=== PATIENT | male | born 1995 | race Caucasian/White ===

== ENCOUNTER 2023-04-04 09:57 | Day surgery (SDC) | payer SELFPAY, OTHER ==
[2023-04-04] VITALS (7 sets, daily range): BP systolic 92–126; BP diastolic 52–74; PULSE 46–65; RESP 14–16; TEMP 36.5–37.1; O2SAT 97–100; BMI 25.9
[2023-04-04] MEDS: Cefazolin 2 GM in 0.9% Normal Saline 100 ML IV (14:28)
--- NOTE | 2023-04-04 14:28 | PCM.HP.BLA ---
History and Physical Date of Admission: 04/04/23 Date of Service: 03/01/23 MR#: [id number] Acct: [id number] Name: LUTHER PANTOJA Rep #: [id number] : 1995 Provider: Dr. Nathan Mcfadden MD Age/Sex: 27/M Location: [facility] Status: Signed Intake Vital Signs 03/01/2313:02 Height 5 ft 8 in Weight: 170 lb 4 oz BMI 25.9 BP 127/71 H Blood Pressure Location Rt brachial Position Sitting Respiration 18 Pulse 74 Pulse Source Monitor Temp 97.4 F L Temp Source Temporal Pulse Oximetry (%) 99 Oxygen Delivery Method room air Intake Visit Reasons: R INGUINAL HERNIA Chief Complaint: hernia consult [facility] Family History (Updated 03/01/23 @ 13:02 by Sofiya Nix) Mother Breast cancer HPI HPI HPI: Patient is a 27-year-old male who presents for concern for right inguinal hernia. This finding was first noticed by patient approximately 3-1/2 weeks ago. Patient is not able to recall how this occurred and states he was simply sitting at home after work when he noticed a bulge. Other symptoms include: Mild discomfort after the end of a long day of work. He denies any affect to his bowels. Patient has a personal history of smoking (just a couple cigarettes daily). Patient has no personal history of recurrent cutaneous infections including staph. Pertinent surgical history includes: No prior surgical history ROS General General: No weight change, appetite, fatigue, colon cancer, breast cancer or weakness HEENT HEENT: No difficulty swallowing, eye injury, eye surgery, swollen glands or hoarseness Endo Endocrine: No thyroid disease, diabetes mellitus, thyroid cancer, Hair loss, heat intolerance or cold intolerance Skin Skin: No rash or changing moles Breast Breast: No left breast lump, right breast lump, nipple discharge, breast pain, abnormal mammogram, abnormal US or breast enlargement Musc Musculoskeletal: No back problems, arthritis, rheumatoid arthritis, gout or joint pain Cardio Cardiovascular: No murmur, pacemaker, heart disease, atrial fibrillation, high blood pressure, heart attack, heart stent, palpitations, shortness of breat with exertion or chest pain Psych Psychiatric: No depression, anxiety or hearing voices Resp Respiratory: No shortness of breath, No sleep apnea, No cough, No COPD, No asthma, No emphysema and No wheezing Gastro Gastrointestinal: No abdominal pain, No nausea or vomiting, No diarrhea, No constipation, No blood in stool, No acid reflux, No hemorrhoids, No ulcers, No gallbladder problem and No black,tarry stools Ney Hematologic: No blood thinners, No blood disorders, No bleeding, No anemia and No blood clots Neuro Neurologic: No system reviewed and no additional complaints, except as documented, No as per HPI, No abnormal gait, No abnormal hearing, No abnormal movements, No abnormal speech, No behavioral changes, No burning sensations, No confusion, No convulsions, No disequilibrium, No dizziness, No localized weakness, No frequent falls, No headache(s), No lack of coordination, No loss of vision, No memory loss, No numbness, No other visual disturbances, No radicular pain, No restless legs, No sensory deficit, No syncope, No tingling, No tremor(s), No weakness and No other Exam Const General: cooperative and healthy appearing Orientation: alert, awake and oriented x3 Resp Effort & Inspection: normal respiratory effort Cardio Rate: regular rate Rhythm: regular rhythm GI Other: Hirsute, nondistended, slender, soft, and nontender to palpation x4 quadrants Other: Bilateral testes are descended in the scrotum. There is no appreciable hernia defect on the left. Patient has a palpable bulge with a palpable indirect defect on the right. Assessment and Plan Assessment and Plan (1) Inguinal hernia of right side without obstruction or gangrene: Status: Acute Comment: This is a 27-year-old, otherwise healthy, male who presents with signs and symptoms of a new right inguinal hernia. By exam this represents a indirect defect. The relevant pathophysiology was reviewed with patient and I have recommended a hernia repair with mesh. I have stressed to him that he will require 5 weeks of activity restrictions to allow this to heal necessarily and have also requested that he undergo smoking cessation prior to our repair as this will only serve to complicate wound healing. Mr. Pantoja expresses understanding of these requests and accepts my recommendation for hernia repair. This outpatient surgery will be scheduled in the coming weeks. Plan: ? Robot-assisted right inguinal hernia repair with mesh at first mutually agreeable date. Patient to require MRSA screening. Patient encouraged to undergo smoking cessation as surgery is contemplated. I have examined the patient and the H&P has been reviewed. There are no clinical changes since date of exam. Procedure and post procedure expectations were reviewed with patient and his spouse. All questions were answered. Proceed to the operating room for robot-assisted right inguinal hernia repair with mesh as discussed above.
--- NOTE | 2023-04-04 16:54 | OP.PCM_ITS ---
Report of Operation Date of Procedure: 04/04/23 Pre-Operative Diagnosis: Right inguinal hernia Post-Operative Diagnosis: Indirect right inguinal hernia Surgery/Procedure Performed:: Robot-assisted right inguinal hernia repair with mesh Surgeon: Nathan Mcfadden slurry plant operator: Vinnie Salcido slurry plant operator: Adriana Lange Type of Anesthesia: General/Supplemental Anesthesiologist: Michael Cortez Estimated Blood Loss (mL): 10 Description of Procedure: After appropriate identification the preoperative holding area the patient was brought to the operating room where he was positioned supine on the operating table. Preoperative antibiotics were completed and the patient was administered a general anesthetic. Patient's abdomen was then prepped and draped in usual sterile fashion. Formal timeout followed to confirm patient and procedure. Procedure was begun with an optical entry facilitated by Veress insufflation at Velasco's point. Once pneumoperitoneum reached a set point pressure of 15 mmHg a right paramedian incision was made and a 8 mm robotic trocar was placed with a careful Optiview technique. Follow-up laparoscopic investigation revealed no inadvertent injury to the viscera below. A second port was placed a hand's breath right of this index port under laparoscopic visualization. Then the Veress needle was withdrawn and a third and final robotic port was placed through this site. Patient was positioned in slight Trendelenburg and I visualized a right indirect inguinal hernia. The robot was docked in standard fashion. Robotically, a peritoneal flap was created on the right extending from the medial umbilical ligament to the level of the ASIS (external) and was bluntly dissected to expose the medial parietal compartment and lateral visceral compartments. Medially I could visualize the pubic bone and Hector's ligament through the space of Retzius while laterally I extended the dissection down to the level of the right psoas muscle. The hernia sac was identified and from the cord structures deeply with selective use of monopolar energy. No cord lipoma was identified. Beyond this, I did not a femoral defect. The peritoneal flap was inspected to ensure that cord was appropriately parietalized and there was no pulling of the cord structures or the viscera deeply over the psoas using the pull test. Once satisfied, a Bard 3D max, size large, mid mesh was placed into the abdomen along with suture. It was positioned within the preperitoneal pocket so that there was good medial and inferior overlap. It was then tacked to the admuniculum of the linea alba just superior to the pubic tubercle and laterally in a partial-thickness bite of the abdominal wall using a 3-0 Vicryl suture. The peritoneal flap was then closed with a running 3-0 V-Loc suture taking care to conceal the barbs of the suture beneath the peritoneum. Once the flap closure was complete, I undertook repair of peritoneal defects with 3-0 Vicryl. With the peritoneal defects closed, sutures were systematically removed from the peritoneum and the pneumoperitoneum was evacuated before removing the trocars. The port sites were closed at the skin with running 4-0 Monocryl in a subcuticular fashion. Steri-Strips and OpSite's were used as dressings. Patient's testicles were returned to the scrotum and a supportive jockstrap was fitted. Patient was then awoken from anesthetic and transferred to PACU for ongoing recovery. Grafts/Implants Used: Bard 3D max MID anatomic mesh Lot [id number], reference [id number] Complications None Admit VTE Documentation VTE Mechan Device Prophylaxis: SCD's Procedures Digestive 40xxx-49xxx: 92720 Lap ing hernia repair init
[2023-04-04] MEDS: Bupivacaine 0.25% 30 ML Vial (17:00)
--- NOTE | 2023-04-04 17:05 | DCINST_ITS ---
Discharge Instructions Diet Discharge Diet: No restrictions Activity Discharge Activity: May Not Drive (While taking narcotic pain medication) and May Shower May shower in (days): 2 Ice area for (Minutes): 20 Lifting Restrictions: No lifting greater than 10 pounds for the next 5 weeks Dressing / Incision Call your doctor if your incision/area has: Continuous Slow Oozing, Increased Pain/ Swelling, Increased Redness, Foul Smelling Discharge and Swelling at the incision site Call your doctor if you observe: Fever of 101 or Higher, Inability to urinate and Inability to have a bowel movement Change Dressing in: 2 days (Please leave Steri-Strips intact until they fall off spontaneously or are taken off at your follow-up visit) Remove Dressing in: 2 days Cleanse incision/area with: Soap & Water and Keep Dressing Clean & Dry Follow Up Care Please Follow Up With: Nathan Mcfadden MD When: 1 week postop Test Results: Test results from this visit will be discussed in further detail at your follow- up appointment, if applicable. Discharge Plan Admission Primary Reason for Your Visit: Repair of right inguinal hernia Attending Provider: Nathan Mcfadden Primary Care Provider: Care Physician,Rachel Primary Discharge Orders/Prescriptions Prescriptions: New hydrocodone-acetaminophen 5-325 mg tablet 1 tab PO Q6H PRN (Reason: pain) 3 Days Qty: 10 0RF Referrals / Follow Up: Care PhysicianRachel Primary [Primary Care Provider] - Disposition Disposition (needs filled in before D/C Order can be placed): Home, Self Care
== END 2023-04-04 20:03 | disposition home or self-care (01) ==
LOC: SDC 09:57 → AC 09:58
PROVIDERS: Referring Provider Surgery; Visit Provider Surgery
PROC: (CPT 49650; principal; 2023-04-04 11:15)
DX: K40.90 Unilateral inguinal hernia, without obstruction or gangrene, not specified as recurrent (principal); Z87.891 Personal history of nicotine dependence
CPT/HCPCS: 49650; 00840; J7120; J2405